=== PATIENT | female | born 1980 | race Caucasian/White ===

== ENCOUNTER → 2016-08-08 | Outpatient (CLI) | payer MEDICAID | LOC: BMCIMAGING 08:33 | PROVIDERS: ATTEND Registered Nurse General Practice | DX: M50.321 Other cervical disc degeneration at C4-C5 level (principal); M50.33 Other cervical disc degeneration, cervicothoracic region; M46.92 Unspecified inflammatory spondylopathy, cervical region; M46.93 Unspecified inflammatory spondylopathy, cervicothoracic region ==

== ENCOUNTER 2016-08-14 09:55 | Emergency (ER) | payer MEDICAID ==
[2016-08-14 10:02] VITALS: BP 110/77; PULSE 71; RESP 16; TEMP 97.9; O2SAT 98
--- NOTE | 2016-08-14 10:12 | EDPHY ---
H & P Time Seen by Provider: 08/14/16 10:07 HPI/ROS: CHIEF COMPLAINT: Right-sided neck pain with trapezius pain HISTORY OF PRESENT ILLNESS: This is a 35-year-old female presenting to the emergency department complaining of right sided neck pain and trapezius pain onset this morning. Patient states she has had chronic neck pain for about 3-4 years recently had a cervical vertebral x-ray ordered by her primary care. She was called by her PCP yesterday said she had arthritis cervical radiculopathy. Patient states she does not know if she slept wrong but woke up this morning with tension to her right side of neck and right trapezius. Denies any other complaints REVIEW OF SYSTEMS: Constitutional: No fever, no chills. Eyes: No blurred vision ENT: No sore throat. Cardiovascular: No chest pain, no palpitations. Respiratory: No cough, no shortness of breath. Gastrointestinal: No abdominal pain, no vomiting. Genitourinary: No hematuria. Musculoskeletal: Neck pain. No back pain. Skin: No rashes. Neurological: No headache. Smoking Status: Current every day smoker Physical Exam: General Appearance: Alert, no distress. Eyes: PERRLA no pallor or injection. ENT, Mouth: Mucous membranes moist. Respiratory: There are no retractions, lungs are clear to auscultation. Cardiovascular: Regular rate and rhythm. Gastrointestinal: Abdomen is soft and nontender, no masses. Neurological: No focal deficits. Ambulatory without gait disturbance Skin: Warm and dry, no rashes. Musculoskeletal: Vertebral cervical spine nontender on palpation. Right lateral trapezius tender on palpation. Full range of motion without difficulty Extremities: symmetrical, full range of motion. Psychiatric: Patient is oriented X 3, there is no agitation. Constitutional: Initial Vital Signs Temperature (C) 36.6 C 08/14/16 09:57 Heart Rate 71 08/14/16 09:57 Respiratory Rate 16 08/14/16 09:57 Blood Pressure 110/77 08/14/16 09:57 O2 Sat (%) 98 08/14/16 09:57 O2 Delivery Mode Room Air Allergies/Adverse Reactions: No Known Allergies Allergy (Unverified 08/14/16 09:57) Home Medications: Medication Instructions Recorded CLONAZEPAM 08/14/16 Cyclobenzaprine [Flexeril 10 MG 10 mg PO TID PRN #15 tab 08/14/16 (*)] Flexeril 08/14/16 Lidocaine 5% [Lidoderm 5% Patch 3 ea TD DAILY #3 patch 08/14/16 (*)] Medical Decision Making ED Course/Re-evaluation: Discussed ED plan of care: 5% lidocaine patch topical, 2 mg p.o. Valium given 1050: Re-evaluation, patient states feeling better decrease in pain to right trapezius. Discussed discharge instructions, discharge home---> stable Differential Diagnosis: Other differential diagnosis considered but not limited to cervical strain, torticollis, and meningitis - Data Points Medications Given: Discontinued Medications Diazepam (Valium) 2 mg PO EDNOW ONE Stop: 08/14/16 10:14 Last Admin: 08/14/16 10:39 Dose: 2 mg Lidocaine (Lidoderm 5%) 1 ea TD DAILY CRISTHIAN Stop: 02/11/17 08:59 Last Admin: 08/14/16 10:39 Dose: 1 ea Miscellaneous Information (Patch Removal) 1 ea TD DAILY21 CRISTHIAN Stop: 02/10/17 20:59 Last Admin: 08/14/16 10:40 Dose: 1 ea Departure - Departure Disposition: Home, Routine, Self-Care Clinical Impression: Cervical radiculopathy Trapezius strain Qualifiers: Encounter type: initial encounter Laterality: right Qualified Code(s): S46.811A - Strain of other muscles, fascia and tendons at shoulder and upper arm level, right arm, initial encounter Condition: Good Instructions: Cervical Radiculopathy (ED), Neck Pain (ED) Additional Instructions: Discussed discharge instructions 1. You can take ibuprofen 400-600 mg every 6-8 hours as needed 2. leave the lidocaine patch on for 12 hours then take it off for 12 hours you can do this for several days to help with pain. Do not use a heating pad on top of the lidocaine patches this can bring her skin 3. I have also given you a prescription of Flexeril he can take this with ibuprofen as needed Referrals: Kirsten Degroot FNP [Primary Care Provider] - As per Instructions Prescriptions: Cyclobenzaprine [Flexeril 10 MG (*)] 10 mg PO TID PRN #15 tab PRN Reason: Spasms Lidocaine 5% [Lidoderm 5% Patch (*)] 3 ea TD DAILY #3 patch
[2016-08-14] MEDS ORDERED: DIAZEPAM 2 MG TAB PO ONE (10:13)
[2016-08-14] MEDS ORDERED: LIDOCAINE 5% 1 EA PATCH TD ONE (10:29)
[2016-08-14] MEDS ORDERED: DIAZEPAM 5 MG TAB ONE (10:31)
[2016-08-14] MEDS ORDERED: PATCH REMOVAL 1 EA PATCH TD SCH (21:00)
[2016-08-15] MEDS ORDERED: LIDOCAINE 5% 1 EA PATCH TD SCH (09:00)
== END 2016-08-14 11:14 | disposition home or self-care (01) ==
DX: M54.12 Radiculopathy, cervical region (principal); S46.811A Strain of other muscles, fascia and tendons at shoulder and upper arm level, right arm, initial encounter; F17.200 Nicotine dependence, unspecified, uncomplicated; X58.XXXA Exposure to other specified factors, initial encounter

== ENCOUNTER → 2016-08-14 | Outpatient (CLI) | payer MEDICAID | LOC: FIMAGING 16:10 | PROVIDERS: ATTEND Registered Nurse General Practice | DX: M50.321 Other cervical disc degeneration at C4-C5 level (principal); M46.92 Unspecified inflammatory spondylopathy, cervical region; M48.02 Spinal stenosis, cervical region ==

== ENCOUNTER → 2016-12-05 | Outpatient (CLI) | payer MEDICAID | LOC: BMCIMAGING 09:25 | PROVIDERS: ATTEND Registered Nurse General Practice | DX: M54.31 Sciatica, right side (principal) ==